=== PATIENT | male | born 1980 | race Caucasian/White ===

== ENCOUNTER 2022-02-19 14:47 | Outpatient (CLI) | payer OTHER ==
[2022-02-19 15:44] VITALS: BP 130/80
--- NOTE | 2022-02-19 15:44 | SLEEP CARE CONSULTATION ---
Information from patient questionnaire entered by Oswaldo Melton. I have reviewed and concur with the information entered by Oswaldo Melton. This document represents the service I personally performed and the decisions made by me, Nicol Holm ARNP. History of Present Illness Service Date and Time: 02/19/2022 1447 Reason for Visit: New patient Chief Complaint: reports: Unrefreshed sleep, Snoring, Excessive daytime sleepiness, Observed pauses in breathing Date of Onset: 10 years Usual bedtime: 10pm Time it takes to fall asleep: 15-20 minutes Snores at night: Yes Observed to quit breathing while asleep: Yes Sleeps alone due to snoring: No Number of times waking at night: 1-2 Reasons for waking at night: reports: Snoring, Gasping for air, Other (unknown reason ) Toss, Turn, or Twitch while sleeping: Yes Recalls having dreams: Yes Usually gets out of bed at: 0545 Feels refreshed in the morning: No Morning headache: Yes (3-4 days a week; resolves in 30 minutes ) Sleepy or fatigued during the day: Yes (rare unintentional naps after work at night) Ever fallen asleep while driving: No Takes day naps: No Dreams during day naps: No Prior sleep studies: Yes Year and Where: [facility] 2011 Additional HPI information: I had the pleasure of seeing DOUG YOUNG today regarding the possibility of him having a sleep disorder. His current complaints are excessive daytime sleepiness, fatigue, observed pauses in breathing, snoring and unrefreshed sleep. He states he has snored for as long as he can remember. He had a sleep study over 10 years ago that was negative. He states he wakes up feeling congested and not rested. His will wake him up because he will pause in breathing and gasping in his sleep. He will catch himself snoring and wake up. He will wake up taking a deep breath. - Parasomnia Symptoms Ever been unable to move upon waking from sleep: Yes (rare occurance; maybe once) Walks in sleep: No Talks in sleep: Yes (per ) Ever acted out dreams in sleep: Yes Ever felt weak in the knees when startled or emotional: Yes (if very tired he may feel like falling to ground) Bothered by creepy, crawly, restless sensations in legs: No Problems with memory or concentration: Yes (both; concentration more so) Subjective Initial [place] Sleepiness Scale score: 16 (02/18/22) Past Medical History Past Medical History: reports: Mood disorder (PTSD), Other (diverticulitis) Social History The patient's occupation is a ACTIVE [employer]. Patient is and lives in [place]. Have you smoked in the past 12 months: No Cigarettes per day (20/pack): 10 Years of smokin Quit date: 1999 Smoking Pack Years: 2.5 Alcohol use: Yes Alcohol amount and frequency: 1-2 per day Caffeine use: Yes Caffeine amount and frequency: 3-4 cups per day Family History Family history of sleep disordered breathing: Yes Family Hx Sleep Apnea: Mother: Snoring, Father: Snoring, Sibling: Snoring, Sleep apnea - Treated Allergies and Home Medications Known drug allergies: Yes Drug allergies reviewed: Yes (penicillin) Home medication list reviewed: Yes Allergy and home medication list: Medications: Meloxicam cetirizine Review of Systems Weight gain over past 5 years: 20 Cardiovascular: denies: high blood pressure Gastrointestinal: reports: other (diverticulitis) Neurological: reports: headaches Psychiatric: reports: other (PTSD) Ear/Nose/Throat: reports: nasal congestion, dry mouth/throat, tonsillectomy, wisdom teeth removed (1 extracted, 3 remain) Endocrine: reports: sluggishness Musculoskeletal: reports: joint pain, neck pain, back pain Immunologic: reports: sneezing, allergies to food or environment Physical Exam Vital signs obtained and entered by: IRINA BANDA Blood Pressure: 130/80 Heart Rate: 95 O2 Saturation: 96 Height: 5 ft 11 in Weight: 225 lb Body Mass Index: 31.4 BMI Classification: Obese Neck circumference: 17 (inches ) Mouth and throat: narrow oropharynx Soft palate: long Hard palate: normal Uvula: normal Uvula visualization: 25% Mallampati Class III Tongue: normal in size Tonsils: absent bilaterally Neck: normal w/o lymphadenopathy or thyromegaly Heart: regular rate and rhythm Lungs: clear bilaterally Impression and Plan 1. Suspected Obstructive Sleep Apnea-Hypopnea Syndrome, as suggested by a history of loud and irregular snoring, observed cessation of breath while asleep, gasping or choking in sleep, morning headache, unrefreshed sleep, cognitive impairment, and excessive daytime sleepiness. Narrow oropharynx and obesity are common predisposing factors for obstructive sleep apnea-hypopnea syndrome. I recommend proceeding to polysomnography to confirm the diagnosis and to assess severity. If the patient has significant sleep disordered breathing, a manual CPAP titration study will also be performed to find the optimal treatment pressure. I informed the patient of what the sleep studies involve and after some discussion, obtained agreement to proceed. The pathophysiology of obstructive sleep apnea-hypopnea syndrome was discussed with the patient and health risks of cardiovascular and cerebrovascular disease if not treated. Risks of drowsy driving discussed in detail and patient advised to avoid long distance driving and to hand assembler for puller over at the first sign of drowsiness. Patient agreed to plan. * Schedule polysomnography * Avoid long distance driving or driving when feeling sleepy. * Avoid alcohol, sedative and muscle relaxant around bedtime. * Attempt to lose weight. * Review instructions provided by trained office staff on how to prepare for the sleep study. * Return for follow-up after sleep study completed. Counseling Topics: Weight loss health impact Visit Type: In Office Time Spent with Patient (minutes): 31 Provider Statement: I spent 100% of the Face to Face Visit with the patient with greater than 50% spent counseling the patient and coordination of care.
== END 2022-02-19 14:48 | disposition home or self-care (01) ==
LOC: SC 14:47
PROVIDERS: ATTEND Nurse Practitioner Family
DX: R06.83 Snoring (principal); G47.8 Other sleep disorders; R06.81 Apnea, not elsewhere classified; R51.9 Headache, unspecified; G47.10 Hypersomnia, unspecified; R53.83 Other fatigue; E66.9 Obesity, unspecified; Z68.31 Body mass index [BMI] 31.0-31.9, adult; Z87.891 Personal history of nicotine dependence
CPT/HCPCS: 99203; 99212

== ENCOUNTER 2022-03-15 08:55 | Outpatient (CLI) | payer OTHER | END 2022-03-15 08:56 | disposition home or self-care (01) | LOC: SC 08:55 | PROVIDERS: ATTEND Nurse Practitioner Family | DX: G47.33 Obstructive sleep apnea (adult) (pediatric) (principal); R09.02 Hypoxemia | CPT/HCPCS: 95806 ==

== ENCOUNTER 2022-10-24 16:50 | Outpatient (CLI) | payer OTHER ==
--- NOTE | 2022-10-25 14:28 | MRI Report ---
PROCEDURE: MRI lumbar spine without contrast INDICATIONS: LUMBAR DISC DEGENERATION TECHNIQUE: Noncontrast sagittal T1 spin echo and T2 fast echo, sagittal STIR, axial T1 and T2 fast spin echo thr ough the lumbar spine. In cases with scoliosis, additional coronal T2 fast spin echo may be performe d. COMPARISON: 12/10/2021 FINDINGS: Image quality: Excellent. Alignment and Curvature: There is normal bony alignment. Bone Marrow: Marrow is of normal overall signal. No acute vertebral body compression fractures. Spinal Cord: Conus medullaris terminates at the L1 level. Visualized cord demonstrates normal signa l and size. Paraspinous Soft Tissues: No paravertebral masses. T12-L1: Normal in appearance. L1-L2: Disc height is maintained. Circumferential disc bulge results in mild central stenosis appe ar no foraminal stenosis. L2-L3: Normal in appearance. L3-L4: Normal in appearance. L4-L5: Normal in appearance. L5-S1: Normal in appearance. IMPRESSION: Mild degenerative changes L1-2 results in mild central stenosis Reviewed by: Jd Ott MD on 10/25/2022 1:26 PM [facility] Approved by: Jd Ott MD on 10/25/2022 1:26 PM [facility] Station ID: [id number]
== END 2022-10-24 16:51 | disposition home or self-care (01) ==
LOC: DI 16:50
PROVIDERS: ATTEND General Practice
DX: M51.36 Other intervertebral disc degeneration, lumbar region (principal); M47.816 Spondylosis without myelopathy or radiculopathy, lumbar region; M48.061 Spinal stenosis, lumbar region without neurogenic claudication